=== PATIENT | female | born 1990 | race African-American/Black ===

== ENCOUNTER 2018-09-12 14:52 | Emergency (ER) | payer SELFPAY | END 2018-09-12 15:30 | disposition home or self-care (01) | LOC: MADERS 14:52 | DX: T78.40XA Allergy, unspecified, initial encounter (principal); F32.9 Major depressive disorder, single episode, unspecified; F17.210 Nicotine dependence, cigarettes, uncomplicated; J45.909 Unspecified asthma, uncomplicated; Z79.51 Long term (current) use of inhaled steroids | CPT/HCPCS: 99283 ==

== ENCOUNTER 2018-10-04 19:17 | Emergency (ER) | payer SELFPAY ==
[2018-10-04 19:39] LABS: Bilirubin Negative (Negative); Blood, Urine Moderate (Negative); Glucose, Urine (Dipstick) Negative (Negative); Leukocyte Trace (Negative); Nitrite Negative (Negative); Protein, Urine (Dipstick) Trace mg/dL (Neg-Trace); Urobilinogen 0.2 mg/dL (Less than 2)
[2018-10-04 19:40] LABS: Pregnancy Test - Urine (BHCG) Negative (Negative); Pregu Control Background? CLEAR/WHITE (CLR/WHITE); Pregu Control Bar Appear? YES (CONTROL BAR); Specific Gravity 1.034 (1.002-1.036)
[2018-10-04 19:41] LABS: Clarity Hazy (Clear)
[2018-10-04 19:50] LABS: Bacteria/HPF Rare-Few HPF (None Seen)
[2018-10-04 19:51] LABS: Calcium Oxalate Crystals Rare HPF (None Seen)
[2018-10-04] MEDS ORDERED: Sulfameth/Trimethoprim DS 800-160mg TAB ONE (20:19)
== END 2018-10-04 20:24 | disposition home or self-care (01) ==
LOC: MADERS 19:17
DX: N39.0 Urinary tract infection, site not specified (principal); J45.909 Unspecified asthma, uncomplicated; F32.9 Major depressive disorder, single episode, unspecified; F17.210 Nicotine dependence, cigarettes, uncomplicated; Z79.51 Long term (current) use of inhaled steroids
CPT/HCPCS: 81001; 81025; 99283

== ENCOUNTER 2018-12-09 03:20 | Emergency (ER) | payer SELFPAY ==
[2018-12-09] MEDS ORDERED: Sulfameth/Trimethoprim DS 800-160mg TAB ONE (03:48)
== END 2018-12-09 03:50 | disposition home or self-care (01) ==
LOC: MADERS 03:20
DX: L03.112 Cellulitis of left axilla (principal); D64.9 Anemia, unspecified; J45.909 Unspecified asthma, uncomplicated; F32.9 Major depressive disorder, single episode, unspecified; F17.210 Nicotine dependence, cigarettes, uncomplicated
CPT/HCPCS: 99282

== ENCOUNTER 2020-08-18 17:01 | Emergency (ER) | payer SELFPAY | END 2020-08-18 17:32 | disposition home or self-care (01) | LOC: MADERS 17:01 | DX: H01.004 Unspecified blepharitis left upper eyelid (principal); J45.909 Unspecified asthma, uncomplicated; F17.210 Nicotine dependence, cigarettes, uncomplicated | CPT/HCPCS: 99283 ==